=== PATIENT | female | born 1935 | race Caucasian/White ===

== ENCOUNTER 2022-04-25 17:06 | Inpatient (IN) | payer MEDICARE, BC, OTHER ==
[~2022-04-25] VITALS: Ht 170.2 cm; Wt 89.4 kg
[~2022-04-25 17:06] MED LIST: ALLOPURINOL100 MG PO; APIDRA SOL100 UNIT/1; DIABETA PO; LEVEMIR 3M100 UNITS/ SC; MICRON PO; NEURONTIN300 MG PO; Z.0.CELEBREX200 MG PO; Z.0.METOPROLOL SUC10 PO; Z.0.NEURONTIN100 MG PO; Z.0.OMEPRAZOLE40 MG PO; Z.0.ONGLYZA5 MG PO; Z.0.PRINIVIL20 MG PO
[2022-04-25 17:32] LABS: BASOPHILS # (AUTO) 0.1 (0.0-0.1); BASOPHILS % 0.6 % (0.0-1.0); EOSINOPHILS # (AUTO) 0.1 (0.0-0.4); EOSINOPHILS % 1.1 % (0.0-6.0); HEMATOCRIT 38.7 % (34.2-44.1); HEMOGLOBIN 12.6 g/dL (12.0-16.0); LYMPHOCYTES # (AUTO) 1.2 (1.0-3.2); LYMPHOCYTES % 11.4 % (18.0-39.1); MEAN CORPUSCULAR HEMOGLOBIN 29.8 pg (28-32); MEAN CORPUSCULAR HGB CONC 32.6 g/dL (31-35); MEAN CORPUSCULAR VOLUME 91.5 fL (81-99); MONOCYTES # (AUTO) 0.8 (0.2-0.8); MONOCYTES % 7.5 % (4.4-11.3); NEUTROPHILS # (AUTO) 7.9 (2.1-6.9); NEUTROPHILS % 78.8 % (38.7-80.0); PLATELET COUNT 215 x10e3/uL (140-360); RED BLOOD COUNT 4.23 x10e6/uL (3.6-5.1); RED CELL DISTRIBUTION WIDTH 13.4 % (11.7-14.4)
[2022-04-25 17:49] LABS: ALANINE AMINOTRANSFERASE 17 IU/L (0-55); ALBUMIN 2.8 g/dL (3.5-5.0); ALBUMIN/GLOBULIN RATIO 0.8 (0.8-2.0); ALKALINE PHOSPHATASE 91 IU/L (40-150); ANION GAP 20.4 mmol/L (8-16); BLOOD UREA NITROGEN 42 mg/dL (7-26); BUN/CREATININE RATIO 22 (6-25); CALCIUM 7.8 mg/dL (8.4-10.2); CARBON DIOXIDE 16 mmol/L (22-29); CHLORIDE 102 mmol/L (98-107); CREATININE, SERUM 1.92 mg/dL (0.57-1.11); POTASSIUM 4.4 mmol/L (3.5-5.1); SODIUM 134 mmol/L (136-145)
[2022-04-25 17:51] LABS: GLUCOSE 461 mg/dL (74-118)
[2022-04-25] MEDS ORDERED: INSULIN REGULAR, HUMAN 100 UNIT/1 ML IV STA (18:47)
[2022-04-25] MEDS ORDERED: HYDRALAZINE HCL 20 MG/ML VIAL IV ONE (19:30)
[2022-04-25 20:55] LABS: CLARITY,URINE SL CLOUDY (CLEAR); COLOR,URINE YELLOW (YELLOW)
[2022-04-25 20:56] LABS: KETONES,URINE NEGATIVE (NEGATIVE); LEUKOCYTE ESTERASE ,URINE NEGATIVE (NEGATIVE); NITRITE,URINE NEGATIVE (NEGATIVE); PROTEIN,URINE DIPSTICK 2+ (NEGATIVE); URINE UROBILINOGEN 0.2 mg/dL (0.2 - 1)
[2022-04-25 21:10] LABS: BACTERIA,URINE MANY /HPF; RBC,URINE 0-5 /HPF (0-5); WBC,URINE (MAN) 0-5 /HPF (0-5)
[2022-04-25] MEDS: CIPROFLOXACIN 400 MG/D5W 200ML 200 ML IV SCH (22:07)
[2022-04-25 22:52] VITALS: BP 159/87
[2022-04-25 23:10] VITALS: BP 159/87
[2022-04-26] VITALS (9 sets, daily range): BP systolic 108–198; BP diastolic 65–99
[2022-04-26] MEDS: SODIUM CHLORIDE 0.9% 1000ML 1,000 ML IV SCH ×2 (03:05→05:30)
[2022-04-26 08:37] LABS: BASOPHILS # (AUTO) 0.1 (0.0-0.1); BASOPHILS % 0.5 % (0.0-1.0); EOSINOPHILS # (AUTO) 0.1 (0.0-0.4); EOSINOPHILS % 1.1 % (0.0-6.0); HEMATOCRIT 41.2 % (34.2-44.1); HEMOGLOBIN 13.2 g/dL (12.0-16.0); LYMPHOCYTES # (AUTO) 1.2 (1.0-3.2); MEAN CORPUSCULAR HEMOGLOBIN 29.5 pg (28-32); MEAN CORPUSCULAR VOLUME 92.2 fL (81-99); MONOCYTES % 9.3 % (4.4-11.3); NEUTROPHILS # (AUTO) 8.4 (2.1-6.9); NEUTROPHILS % 77.7 % (38.7-80.0); PLATELET COUNT 202 x10e3/uL (140-360); RED BLOOD COUNT 4.47 x10e6/uL (3.6-5.1); RED CELL DISTRIBUTION WIDTH 13.2 % (11.7-14.4)
[2022-04-26 09:18] LABS: ALBUMIN 3.2 g/dL (3.5-5.0); ALBUMIN/GLOBULIN RATIO 0.8 (0.8-2.0); ANION GAP 18.5 mmol/L (8-16); CALCIUM 9.2 mg/dL (8.4-10.2); CREATININE, SERUM 2.12 mg/dL (0.57-1.11); POTASSIUM 4.5 mmol/L (3.5-5.1)
[2022-04-26 09:48] LABS: CREATINE KINASE MB 2.9 ng/mL (0-5.0)
[2022-04-26] MEDS: CIPROFLOXACIN 400 MG/D5W 200ML 200 ML IV SCH ×2 (10:00→16:58)
[2022-04-26] MEDS ORDERED: GLIPIZIDE10 MG PO (10:46)
[2022-04-26] MEDS ORDERED: AMIODARONE HCL200 MG PO (10:46)
[2022-04-26] MEDS ORDERED: LASIX40 MG PO (10:46)
[2022-04-26] MEDS ORDERED: JENTADUETO 2.51 EAC2 PO (10:46)
[2022-04-26] MEDS ORDERED: MONTELUKAST SOD10 MG PO (10:46)
[2022-04-26] MEDS ORDERED: SODIUM BICARBO650 MG PO (10:46)
[2022-04-26] MEDS ORDERED: BENZONATATE100 MG PO (10:46)
[2022-04-26] MEDS ORDERED: DEXTROSE 50% SYRINGE 50 ML IV PRN (11:30)
[2022-04-26] MEDS ORDERED: HYDROCODONE/APAP 5MG-325MG TAB PO PRN (11:30)
[2022-04-26] MEDS ORDERED: HYDRALAZINE HCL 20 MG/ML VIAL IV PRN (11:30)
[2022-04-26] MEDS ORDERED: INSULIN GLARGINE 100 UNITS/ML VIAL SQ ONE (12:00)
[2022-04-26] MEDS: METOPROLOL TARTRATE 25 MG TAB PO SCH ×2 (12:49→16:59)
[2022-04-26] MEDS: AMIODARONE HCL 200 MG TAB PO SCH (12:49)
[2022-04-26] MEDS: INSULIN LISPRO 100 UNIT/1 ML 3ML VIAL SQ SCH ×5 (12:50→21:00)
[2022-04-26] MEDS: GABAPENTIN 100 MG CAP PO SCH ×2 (14:05→21:00)
[2022-04-26] MEDS: BENZONATATE 100 MG CAP PO SCH ×2 (14:05→21:00)
[2022-04-26] MEDS: ONDANSETRON HCL INJ 2MG/ML 2ML 2 MG/ML VIAL IV PRN ×2 (14:13→16:58)
[2022-04-26 14:45] LABS: CREATINE KINASE MB 3.3 ng/mL (0-5.0)
[2022-04-26] MEDS: ENOXAPARIN SOD INJ 40 MG/0.4 ML SYR SC SCH (16:59)
[2022-04-26] MEDS ORDERED: ONDANSETRON HCL INJ 2MG/ML 2ML 2 MG/ML VIAL IV STA (18:19)
[2022-04-26] MEDS: MONTELUKAST SODIUM 10 MG TAB PO SCH (21:00)
[2022-04-26] MEDS: INSULIN GLARGINE 100 UNITS/ML VIAL SQ SCH (21:00)
[2022-04-27] VITALS (8 sets, daily range): BP systolic 96–191; BP diastolic 50–89
[2022-04-27 05:43] LABS: CREATININE,URINE RANDOM 65.42 mg/dL (47-110)
[2022-04-27 07:51] LABS: BASOPHILS % 0.4 % (0.0-1.0); EOSINOPHILS # (AUTO) 0.2 (0.0-0.4); EOSINOPHILS % 2.3 % (0.0-6.0); HEMATOCRIT 38.1 % (34.2-44.1); HEMOGLOBIN 12.2 g/dL (12.0-16.0); LYMPHOCYTES # (AUTO) 1.6 (1.0-3.2); LYMPHOCYTES % 17.3 % (18.0-39.1); MEAN CORPUSCULAR VOLUME 93.8 fL (81-99); NEUTROPHILS # (AUTO) 6.5 (2.1-6.9); NEUTROPHILS % 68.5 % (38.7-80.0); PLATELET COUNT 201 x10e3/uL (140-360); RED BLOOD COUNT 4.06 x10e6/uL (3.6-5.1); RED CELL DISTRIBUTION WIDTH 13.4 % (11.7-14.4)
[2022-04-27 08:21] LABS: ALBUMIN 2.9 g/dL (3.5-5.0); ALBUMIN/GLOBULIN RATIO 0.8 (0.8-2.0); ANION GAP 16.3 mmol/L (8-16); CREATININE, SERUM 2.45 mg/dL (0.57-1.11); POTASSIUM 4.3 mmol/L (3.5-5.1)
[2022-04-27 08:50] LABS: MAGNESIUM 1.5 MG/DL (1.3-2.1); PHOSPHORUS 3.6 MG/DL (2.3-4.7)
[2022-04-27] MEDS: INSULIN LISPRO 100 UNIT/1 ML 3ML VIAL SQ SCH ×7 (09:00→21:00)
[2022-04-27] MEDS: AMIODARONE HCL 200 MG TAB PO SCH (09:08)
[2022-04-27] MEDS: BENZONATATE 100 MG CAP PO SCH ×3 (09:09→21:00)
[2022-04-27] MEDS: ALLOPURINOL 100 MG TAB PO SCH (09:09)
[2022-04-27] MEDS: METOPROLOL TARTRATE 25 MG TAB PO SCH ×2 (09:09→16:52)
[2022-04-27] MEDS: GABAPENTIN 100 MG CAP PO SCH ×3 (09:09→21:00)
[2022-04-27] MEDS: SODIUM BICARBONATE 650 MG TAB PO SCH (09:09)
[2022-04-27 09:13] LABS: CREATINE KINASE MB 3.4 ng/mL (0-5.0)
[2022-04-27] MEDS ORDERED: MAGNESIUM SULFATE 2GM/50ML 50 ML IV ONE (09:30)
[2022-04-27] MEDS: CIPROFLOXACIN 400 MG/D5W 200ML 200 ML IV SCH (10:18)
[2022-04-27] MEDS ORDERED: FUROSEMIDE INJ 10 MG/ML 4 ML VIAL IV ONE (11:30)
[2022-04-27] MEDS: ENOXAPARIN SOD INJ 40 MG/0.4 ML SYR SC SCH (16:54)
[2022-04-27] MEDS: SODIUM CHLORIDE 0.9% 500ML 500 ML IV SCH ×2 (16:54→22:00)
[2022-04-27] MEDS: MONTELUKAST SODIUM 10 MG TAB PO SCH (21:00)
[2022-04-27] MEDS: INSULIN GLARGINE 100 UNITS/ML VIAL SQ SCH (21:00)
[2022-04-28] VITALS (7 sets, daily range): BP systolic 103–141; BP diastolic 44–68
[2022-04-28] MEDS: INSULIN LISPRO 100 UNIT/1 ML 3ML VIAL SQ SCH ×7 (07:30→20:51)
[2022-04-28 07:42] LABS: ALBUMIN 2.8 g/dL (3.5-5.0); ALBUMIN/GLOBULIN RATIO 0.8 (0.8-2.0); ANION GAP 15.6 mmol/L (8-16); CALCIUM 8.6 mg/dL (8.4-10.2); CREATININE, SERUM 3.51 mg/dL (0.57-1.11); MAGNESIUM 2.2 MG/DL (1.3-2.1); PHOSPHORUS 4.5 MG/DL (2.3-4.7); POTASSIUM 4.6 mmol/L (3.5-5.1)
[2022-04-28 07:46] LABS: INR 2.89; PROTHROMBIN TIME 32.3 seconds (11.9-14.5)
[2022-04-28 07:47] LABS: PARTIAL THROMBOPLASTIN TIME 41.9 seconds (23.8-35.5)
[2022-04-28] MEDS: SODIUM CHLORIDE 0.9% 500ML 500 ML IV SCH ×2 (08:00→18:11)
[2022-04-28] MEDS ORDERED: FUROSEMIDE INJ 10 MG/ML 4 ML VIAL IV SCH (09:00)
[2022-04-28] MEDS ORDERED: CIPROFLOXACIN 400 MG/D5W 200ML 200 ML IV SCH (09:00)
[2022-04-28] MEDS: METOPROLOL TARTRATE 25 MG TAB PO SCH ×2 (09:45→16:46)
[2022-04-28] MEDS: BENZONATATE 100 MG CAP PO SCH ×3 (09:45→21:00)
[2022-04-28] MEDS: GABAPENTIN 100 MG CAP PO SCH ×3 (09:45→22:07)
[2022-04-28] MEDS: AMIODARONE HCL 200 MG TAB PO SCH (09:45)
[2022-04-28] MEDS: ALLOPURINOL 100 MG TAB PO SCH (09:45)
[2022-04-28] MEDS: SODIUM BICARBONATE 650 MG TAB PO SCH (09:45)
[2022-04-28] MEDS: ENOXAPARIN SOD INJ 40 MG/0.4 ML SYR SC SCH (16:46)
[2022-04-28] MEDS: INSULIN GLARGINE 100 UNITS/ML VIAL SQ SCH (20:52)
[2022-04-28] MEDS: MONTELUKAST SODIUM 10 MG TAB PO SCH (22:07)
[2022-04-29] VITALS (7 sets, daily range): BP systolic 138–175; BP diastolic 52–75
[2022-04-29] MEDS: SODIUM CHLORIDE 0.9% 500ML 500 ML IV SCH ×2 (04:00→08:38)
[2022-04-29] MEDS: INSULIN LISPRO 100 UNIT/1 ML 3ML VIAL SQ SCH ×7 (07:30→20:44)
[2022-04-29] MEDS: GABAPENTIN 100 MG CAP PO SCH ×3 (08:38→20:38)
[2022-04-29] MEDS: ALLOPURINOL 100 MG TAB PO SCH (08:38)
[2022-04-29] MEDS: METOPROLOL TARTRATE 25 MG TAB PO SCH ×2 (08:38→17:12)
[2022-04-29] MEDS: AMIODARONE HCL 200 MG TAB PO SCH (08:38)
[2022-04-29] MEDS: BENZONATATE 100 MG CAP PO SCH ×3 (08:38→20:38)
[2022-04-29] MEDS: SODIUM BICARBONATE 650 MG TAB PO SCH (08:41)
[2022-04-29 09:09] LABS: BASOPHILS # (AUTO) 0.1 (0.0-0.1); BASOPHILS % 0.7 % (0.0-1.0); EOSINOPHILS # (AUTO) 0.4 (0.0-0.4); EOSINOPHILS % 5.3 % (0.0-6.0); HEMATOCRIT 38.1 % (34.2-44.1); HEMOGLOBIN 11.9 g/dL (12.0-16.0); LYMPHOCYTES # (AUTO) 1.4 (1.0-3.2); LYMPHOCYTES % 19.1 % (18.0-39.1); MEAN CORPUSCULAR HEMOGLOBIN 29.2 pg (28-32); MEAN CORPUSCULAR HGB CONC 31.2 g/dL (31-35); MEAN CORPUSCULAR VOLUME 93.6 fL (81-99); MONOCYTES % 13.7 % (4.4-11.3); NEUTROPHILS # (AUTO) 4.3 (2.1-6.9); NEUTROPHILS % 60.4 % (38.7-80.0); PLATELET COUNT 195 x10e3/uL (140-360); RED BLOOD COUNT 4.07 x10e6/uL (3.6-5.1); RED CELL DISTRIBUTION WIDTH 13.8 % (11.7-14.4)
[2022-04-29 09:28] LABS: CALCIUM 8.1 mg/dL (8.4-10.2); CREATININE, SERUM 2.93 mg/dL (0.57-1.11)
[2022-04-29 12:06] LABS: CLARITY,URINE CLEAR (CLEAR); COLOR,URINE YELLOW (YELLOW); LEUKOCYTE ESTERASE ,URINE SMALL (NEGATIVE); NITRITE,URINE NEGATIVE (NEGATIVE); PROTEIN,URINE DIPSTICK TRACE (NEGATIVE)
[2022-04-29 12:07] LABS: KETONES,URINE NEGATIVE (NEGATIVE); URINE UROBILINOGEN 0.2 mg/dL (0.2 - 1)
[2022-04-29 12:37] LABS: RBC,URINE 0-5 /HPF (0-5); WBC,URINE (MAN) 0-5 /HPF (0-5)
[2022-04-29 12:38] LABS: BACTERIA,URINE MODERATE /HPF; EPITHELIAL CELLS,URINE FEW /LPF
[2022-04-29] MEDS: HYDRALAZINE HCL 25 MG TAB PO SCH (17:11)
[2022-04-29] MEDS: ENOXAPARIN SOD INJ 40 MG/0.4 ML SYR SC SCH (17:12)
[2022-04-29] MEDS ORDERED: ACETAMINOPHEN 325 MG TAB PO PRN (18:00)
[2022-04-29] MEDS: MONTELUKAST SODIUM 10 MG TAB PO SCH (20:38)
[2022-04-29] MEDS: INSULIN GLARGINE 100 UNITS/ML VIAL SQ SCH (20:45)
[2022-04-30] VITALS: BP 128/50
[2022-04-30] MEDS: SODIUM CHLORIDE 0.9% 500ML 500 ML IV SCH (00:07)
[2022-04-30 03:53] VITALS: BP 126/53
[2022-04-30 05:03] LABS: BASOPHILS # (AUTO) 0.1 (0.0-0.1); BASOPHILS % 0.7 % (0.0-1.0); EOSINOPHILS # (AUTO) 0.4 (0.0-0.4); HEMATOCRIT 34.1 % (34.2-44.1); HEMOGLOBIN 10.6 g/dL (12.0-16.0); LYMPHOCYTES # (AUTO) 1.4 (1.0-3.2); LYMPHOCYTES % 19.3 % (18.0-39.1); MEAN CORPUSCULAR HEMOGLOBIN 29.8 pg (28-32); MEAN CORPUSCULAR HGB CONC 31.1 g/dL (31-35); MEAN CORPUSCULAR VOLUME 95.8 fL (81-99); MONOCYTES # (AUTO) 0.9 (0.2-0.8); MONOCYTES % 13.2 % (4.4-11.3); NEUTROPHILS # (AUTO) 4.3 (2.1-6.9); NEUTROPHILS % 60.9 % (38.7-80.0); PLATELET COUNT 197 x10e3/uL (140-360); RED BLOOD COUNT 3.56 x10e6/uL (3.6-5.1)
[2022-04-30 05:27] LABS: ANION GAP 13.9 mmol/L (8-16); CALCIUM 8.4 mg/dL (8.4-10.2); CREATININE, SERUM 2.55 mg/dL (0.57-1.11); POTASSIUM 4.9 mmol/L (3.5-5.1)
[2022-04-30] MEDS: INSULIN LISPRO 100 UNIT/1 ML 3ML VIAL SQ SCH ×4 (07:30→12:21)
[2022-04-30 07:48] VITALS: BP 134/51
[2022-04-30 08:17] VITALS: BP 134/51
[2022-04-30] MEDS: AMIODARONE HCL 200 MG TAB PO SCH (08:54)
[2022-04-30] MEDS: HYDRALAZINE HCL 25 MG TAB PO SCH (08:54)
[2022-04-30] MEDS: METOPROLOL TARTRATE 25 MG TAB PO SCH (08:55)
[2022-04-30] MEDS: SODIUM BICARBONATE 650 MG TAB PO SCH (08:55)
[2022-04-30] MEDS: BENZONATATE 100 MG CAP PO SCH (08:55)
[2022-04-30] MEDS: GABAPENTIN 100 MG CAP PO SCH (08:55)
[2022-04-30] MEDS: ALLOPURINOL 100 MG TAB PO SCH (08:56)
[2022-04-30] MEDS ORDERED: ONDANSETRON HCL 4 MG ORAL DISINTEGRATING TAB PO PRN (09:00)
[2022-04-30] MEDS ORDERED: FUROSEMIDE 40 MG TAB PO SCH (09:30)
[2022-04-30 12:00] VITALS: BP 178/79
== END 2022-04-30 13:28 | DRG 291 ==
LOC: ER 17:45 → ERHOLD 21:40 → MED/SURG3 22:44 → OBSVTOIN 04-26 16:22
PROVIDERS: ADMIT Internal Medicine; ATTEND Internal Medicine
PROC: 02HV33Z Insertion of Infusion Device into Superior Vena Cava, Percutaneous Approach (ICD-10-PCS; principal; 2022-04-28)
DX: I13.0 Hypertensive heart and chronic kidney disease with heart failure and stage 1 through stage 4 chronic kidney disease, or unspecified chronic kidney disease (principal); I50.33 Acute on chronic diastolic (congestive) heart failure; N39.0 Urinary tract infection, site not specified; N17.9 Acute kidney failure, unspecified; E87.2 Acidosis; E87.1 Hypo-osmolality and hyponatremia; E11.22 Type 2 diabetes mellitus with diabetic chronic kidney disease; F22 Delusional disorders; R19.7 Diarrhea, unspecified; N18.30 Chronic kidney disease, stage 3 unspecified; I48.0 Paroxysmal atrial fibrillation; E66.9 Obesity, unspecified; Z96.653 Presence of artificial knee joint, bilateral; E11.65 Type 2 diabetes mellitus with hyperglycemia; N13.9 Obstructive and reflux uropathy, unspecified; I25.10 Atherosclerotic heart disease of native coronary artery without angina pectoris; K21.9 Gastro-esophageal reflux disease without esophagitis; I08.0 Rheumatic disorders of both mitral and aortic valves; N28.89 Other specified disorders of kidney and ureter; T40.2X5A Adverse effect of other opioids, initial encounter; Y92.230 Patient room in hospital as the place of occurrence of the external cause; Z68.30 Body mass index [BMI] 30.0-30.9, adult; Z79.4 Long term (current) use of insulin; Z87.442 Personal history of urinary calculi; Z88.0 Allergy status to penicillin; Z88.2 Allergy status to sulfonamides; Z88.8 Allergy status to other drugs, medicaments and biological substances; Z20.822 Contact with and (suspected) exposure to COVID-19
CPT/HCPCS: 36415; 36568; 71045; 71250; 74176; 76770; 80048; 80053; 81001; 82550; 82553; 82570; 82948; 83735; 83880; 84100; 84300; 84484; 85025; 85610; 85730; 93005; 97139; 99284; G0378; J0360; J1650; J1815; J1817; J1940; J2405; J3475; J7030; J7040